=== PATIENT | female | born 1990 | race Caucasian/White ===

== ENCOUNTER 2016-10-29 00:31 | Emergency (ER) | payer OTHER ==
[2016-10-29 00:36] VITALS: TEMP 98.7
--- NOTE | 2016-10-29 00:45 | ED ---
Upper Extremity HPI - General Source: patient, RN notes reviewed, old records reviewed Mode of arrival: ambulatory Limitations: no limitations <Sybil Zamudio - Last Filed: 10/29/16 18:43> <Jordi Lopez - Last Filed: 11/01/16 09:18> - General Chief Complaint: Extremity Injury, Upper Stated Complaint: finger injury Time Seen by Provider: 10/29/16 00:38 - History of Present Illness Initial Comments: This is a 26-year-old female presenting to emergency Department chief complaint of left fourth finger laceration. Patient reports that she slammed her finger in a door gagandeep at a bar. Patient states that the nail bed is totally avulsed. Patient reports diminished sensation over the distal tip. She reports that her fingers "hanging off". She states that she had a previous laceration over this finger last year and it healed well. Patient is left handed. She reports that her tetanus is up-to-date. (Sybil Zamudio) - Related Data Previous Rx's Medication Instructions Recorded Antipyrine/Benzocaine/Glycerin 4 drops OTIC Q2H PRN #5 ml 02/06/15 [Auralgan Otic] Neomycin Calderon/Colist/Hc/Thonzon 4 drops RIGHT EAR QID #5 ml 02/06/15 [Cortisporin-Tc Otic Susp] traMADol HCl [Ultram] 50 - 100 mg PO Q6H PRN #15 tab 02/06/15 Amoxic-Pot Clav 875-125Mg 1 each PO Q12HR #20 tablet 02/08/15 [Augmentin Xr 875-125] Cephalexin [Keflex] 500 mg PO Q6HR #40 cap 10/29/16 HYDROcodone/APAP 10-325MG [[place] 1 tab PO Q6H PRN #15 tab 10/29/16 10-325] Allergies Allergy/AdvReac Type Severity Reaction Status Date / Time No Known Allergies Allergy Verified 10/29/16 00:37 Review of Systems ROS Other: All systems not noted in ROS Statement are negative. <Sybil Zamudio - Last Filed: 10/29/16 18:43> ROS Other: All systems not noted in ROS Statement are negative. <Jordi Lopez - Last Filed: 11/01/16 09:18> ROS Statement: Those systems with pertinent positive or pertinent negative responses have been documented in the HPI. Past Medical History Past Medical History: No Reported History History of Any Multi-Drug Resistant Organisms: None Reported Past Surgical History: Appendectomy Past Psychological History: Anxiety Smoking Status: Never smoker Past Alcohol Use History: None Reported Past Drug Use History: None Reported <Sybil Zamudio - Last Filed: 10/29/16 18:43> General Exam Limitations: no limitations General appearance: alert, in no apparent distress Head exam: Present: atraumatic, normocephalic, normal inspection Eye exam: Present: normal appearance, PERRL, EOMI. Absent: scleral icterus, conjunctival injection, periorbital swelling ENT exam: Present: normal exam, mucous membranes moist Neck exam: Present: normal inspection. Absent: tenderness, meningismus, lymphadenopathy Respiratory exam: Present: normal lung sounds bilaterally. Absent: respiratory distress, wheezes, rales, rhonchi, stridor Cardiovascular Exam: Present: regular rate, normal rhythm, normal heart sounds. Absent: systolic murmur, diastolic murmur, rubs, gallop, clicks GI/Abdominal exam: Present: soft, normal bowel sounds. Absent: distended, tenderness, guarding, rebound, rigid Extremities exam: Present: normal inspection, full ROM, normal capillary refill. Absent: tenderness, pedal edema, joint swelling, calf tenderness Left Hand L/R Front: 1 - laceration (2cm laceration) Hand L/R Back: 1 - Laceration and avulsed nailbed. No overlying skin tissue to attach. Neuro motor exam: Present: wrist extension intact, thumb opposition intact, thumb IP flexion intact, thumb adduction intact Neurosensory exam: Present: radial nerve intact, ulnar nerve intact, median nerve intact Vascular: Present: normal capillary refill Back exam: Present: normal inspection Neurological exam: Present: alert, oriented X3, CN II-XII intact Psychiatric exam: Present: normal affect, normal mood Skin exam: Present: warm, dry, intact, normal color. Absent: rash <Sybil Zamudio - Last Filed: 10/29/16 18:43> <Jordi Lopez - Last Filed: 11/01/16 09:18> - General Exam Comments Initial Comments: Patient appears in distress, she is crying.. (Sybli Zamudio) Medical Decision Making - Radiology Data Radiology results: report reviewed <Linda Zamudioily - Last Filed: 10/29/16 18:43> <Jordi Lopez - Last Filed: 11/01/16 09:18> - Medical Decision Making his is a 26-year-old female presenting to emergency Department chief complaint of left fourth finger laceration. Patient reports that she slammed her finger in a door gagandeep at a bar. Patient states that the nail bed is totally avulsed. Patient reports diminished sensation over the distal tip. She reports that her fingers "hanging off". She states that she had a previous laceration over this finger last year and it healed well. Patient is left handed. She reports that her tetanus is up-to-date. Patient finger nail is avulsed off, bleeding controlled. Xray shows distal tuft fracture. PAtient lateral aspect of the finger was adhered with 5 sutures. PAtient case discussed with Dr. Lopez, he attempted to keep the nail bed open by placing foil in the exposed nail bed. Patient would not tolerate this. Patient was given 1g IM Kefzol, and tyelnol with codeine. Dr. Lopez called Dr. Simmons, and he will see the patient on Monday morning. The wound was then covered with gelfoam, and placed in a tube gauze. PAtient agrees to follow up and return paramteres dicussed. (Sybil Zamudio) I saw this patient in conjunction with the physician training program assistant. I performed independent history and physical exam. Agree with case management. I did speak with the physician training program assistant covering for Dr. Simmons and they will see the patient for further wound care. (Jordi Lopez) - Radiology Data Left fourth distal phalanx fracture. (Sybil Zamudio) Disposition Time of Disposition: 01:58 <Sybil Zamudio - Last Filed: 10/29/16 18:43> <Jordi Lopez - Last Filed: 11/01/16 09:18> Clinical Impression: Open fracture of distal phalanx of finger of left hand, Nail avulsion Disposition: HOME SELF-CARE Condition: Good Instructions: Finger Fracture (ED), Nail Avulsion (ED) Additional Instructions: Keep finger wrapped in the tube gauze. Follow-up on Monday with orthopedic physician. Return to the emergency department if any alarming signs or symptoms occur. Prescriptions: Cephalexin [Keflex] 500 mg PO Q6HR #40 cap HYDROcodone/APAP 10-325MG [[place] 10-325] 1 tab PO Q6H PRN #15 tab PRN Reason: Pain Referrals: Shorty Simmons DO [Doctor of Osteopathic Medicine] - 1-2 days Magaly Foster MD [Primary Care Provider] - 1-2 days Addendum entered and electronically signed by Sybil Zamudio PA-C 10/29/16 18 :48: Procedure note: Patient fourth finger was given a digital block with 1% lidocaine, wound was throughly irriaged with normal saline and betadine. Patient distal finger was adhered to the base with 5 5-0 nylon sutures. Patient nailbed is still exposed, attempted to apply foil to the area of nailbed, however patient wound not tolerate this. She does have less than 2 second capillary refill to distal tip, and sensation intact.
[2016-10-29] MEDS ORDERED: ceFAZolin 1,000 MG VIAL IM STA (00:58)
--- NOTE | 2016-10-29 01:23 | XR ---
EXAM: XR Left Finger(s), 2 or More Views CLINICAL HISTORY: Reason: Pain TECHNIQUE: Frontal, lateral and oblique views of finger(s) of the left hand. COMPARISON: No relevant prior studies available. FINDINGS: Bones/joints: Comminuted fracture of the tuft of the left fourth distal phalanx. No dislocation. Soft tissues: Laceration to the distal left ring finger. No radiopaque foreign body. IMPRESSION: Left fourth distal phalanx fracture.
[2016-10-29] MEDS ORDERED: CEPHALEXIN 500MG STARTER PACK 4 CAP BTL PO STA (01:59)
[2016-10-29] MEDS ORDERED: ACET/COD 300 MG/30 MG STARTER PACK 6 TAB BTL PO STA (01:59)
[2016-10-29 03:20] VITALS: BP 115/55; PULSE 71; RESP 16
== END 2016-10-29 03:20 | disposition home or self-care (01) ==
LOC: EC 00:31
DX: S62.635B Displaced fracture of distal phalanx of left ring finger, initial encounter for open fracture (principal); W23.0XXA Caught, crushed, jammed, or pinched between moving objects, initial encounter; Y92.511 Restaurant or cafe as the place of occurrence of the external cause
CPT/HCPCS: 99283; 12001; 96372; 73140; J0690

== ENCOUNTER → 2016-11-17 | Outpatient (CLI) | payer OTHER ==
[2016-11-17 14:36] LABS: Basophils % (A) 1 %; CH 29.3; CHCM 33.7; Eosinophils # (A) 0.1 k/uL (0-0.7); Eosinophils % (A) 2 %; HCT 38.2 % (34.0-46.0); HDW 2.34; HGB 13.1 gm/dL (11.4-16.0); Luc # (Auto) 0.08; Luc % (Auto) 1; Lymphocytes # (A) 1.5 k/uL (1.0-4.8); Lymphocytes % (A) 20 %; MCH 29.9 pg (25.0-35.0); MCHC 34.3 g/dL (31.0-37.0); MCV 87.3 fL (80.0-100.0); Mean Platelet Volume 7.8; Monocytes # (A) 0.4 k/uL (0-1.0); Monocytes % (A) 5 %; Neutrophils # (A) 5.3 k/uL (1.3-7.7); Neutrophils % (A) 72 %; RBC 4.38 m/uL (3.80-5.40); RDW 12.8 % (11.5-15.5); WBC 7.4 k/uL (3.8-10.6); WBC (Perox) 7.34
== END | disposition home or self-care (01) ==
LOC: LABPAT 14:19
PROVIDERS: ATTEND Orthopaedic Surgery
DX: Z01.812 Encounter for preprocedural laboratory examination (principal)
CPT/HCPCS: 81025; 85025

== ENCOUNTER → 2016-11-23 | Day surgery (SDC) | payer OTHER ==
[2016-11-18 14:32] VITALS: BMI 40.6
--- NOTE | 2016-11-22 21:01 | HP ---
DATE OF SURGERY: 11/23/2016 Elisa Long is a 26-year-old patient seen with a displaced left ring finger distal phalanx fracture with a history of nail bed laceration. I recommended surgical intervention, closed reduction and percutaneous pinning of the distal phalanx fracture with probable revision of the nail bed laceration. I discussed the procedure, risks, complications, recovery. Patient was agreeable. Consent was obtained. PAST MEDICAL HISTORY: Non-contributory. PAST SURGICAL HISTORY: Appendectomy. DAILY MEDICATIONS: None. ALLERGIES: NONE REPORTED. SOCIAL HISTORY: Patient denies current tobacco use. PHYSICAL EVALUATION OF THE LEFT RING FINGER: There is evidence of previous healed laceration of the distal digit as well as the nail bed laceration, which is difficult to evaluate with the scab. There is tenderness along the distal phalanx area. She is able to flex the DIP and PIP joints with some extension, although limited. There is some mild deformity of the distal phalanx. There is good perfusion, sensation distally. Radiographs of the left ring finger reveal the displaced comminuted distal phalanx fracture. IMPRESSION: 1. Displaced left ring finger, distal phalanx fracture. 2. Left ring finger distal phalanx nail bed laceration. PLAN: Closed reduction and percutaneous pinning of the left ring finger, distal phalanx fracture, with revision nail bed laceration. MERNA
[~2016-11-23] MED LIST: BUPIVACAIN-EPI 0.25%-1:200,000 30 ML VIAL SQ ONE; DEXAMETHASONE SOD PHOSPHATE 10 MG/ML 1 ML VIAL IV ONE; HYDROcodone/APAP 10-325MG 1 EACH TAB PO ONE; HYDROmorphone (PF) 1 MG/ML ONE; HYDROmorphone 1 MG/ML 1 ML SYRINGE IVP PRN; KETOROLAC 30 MG/ML 1 ML VIAL IVP ONE; LACTATED RINGERS 1,000 ML IV SCH; LIDOCAINE 1% 20 ML VIAL (10MG/ML) FOR IV START INTRADERMA ONE; LIDOCAINE 1% INJ 10MG/ML (20 ML MDV) ONE; MIDAZOLAM 2 MG/2 ML VIAL IV PRN; MIDAZOLAM 2 MG/2 ML VIAL ONE; ONDANSETRON 4 MG/2 ML VIAL IVP ONE; PROPOFOL 10 MG/ML 20 ML VIAL IV ONE; SCOPOLAMINE 1.5MG/72HR PATCH TRANSDERM ONE; ceFAZolin 3 GM in SODIUM CHLORIDE 0.9% 100 ML IVPB ONE; fentaNYL (PF) 50 MCG/ML 2 ML AMP ONE
--- NOTE | 2016-11-23 13:13 | P.OP ---
Date of Procedure: 11/23/16 Preoperative Diagnosis: Left ring finger displaced comminuted distal phalanx fracture with nailbed laceration Postoperative Diagnosis: 1. Comminuted displaced distal phalanx fracture left ring finger 2. Nailbed laceration left ring finger Procedure(s) Performed: 1. Closed reduction with percutaneous pinning distal phalanx fracture left ring finger 2. Repair nailbed laceration left ring finger Implants: 0.45 K wire Anesthesia: WILIA, local Surgeon: Shorty Simmons Estimated Blood Loss (ml): 2 Pathology: none sent Condition: stable Disposition: PACU Indications for Procedure: 26-year-old patient seen with a comminuted displaced left ring finger distal phalanx fracture along with a nailbed laceration. I recommended surgical intervention to include pinning of the distal phalanx fracture and repair nailbed laceration. Patient was agreeable and consent was obtained. Operative Findings: See description of procedure Description of Procedure: The patient was taken to the operative suite. The patient received preoperative IV antibiotics. The left upper extremity was prepped and draped in the normal sterile orthopedic fashion. I utilized a [place] drain to create a tourniquet effect for the left ring finger. I now exposed the nailbed laceration which was obviously . I opened up the area and noted the displaced distal phalanx fracture. We debrided some scar tissue. The wound was irrigated. With fluoroscopic imaging I introduced a 0.45 K wire crossing the fracture site adequately aligning this comminuted distal phalanx fracture. We again irrigated the wound with normal saline. I now repaired the nailbed laceration utilizing 3-0 Vicryl with reasonable repair noted. I now released the Annita drain with immediate capillary refill noted of the entire digit. A digital block was performed with quarter percent plain Marcaine. Sterile dressings were applied. The patient was awakened and taken recovery stable condition.
[2016-11-23 13:24] VITALS: TEMP 97.6
[2016-11-23 13:49] VITALS: RESP 18
--- NOTE | 2016-11-23 14:14 | FL ---
EXAMINATION TYPE: FL guidance operating room, XR finger 2 views LT DATE OF EXAM: 11/23/2016 HISTORY: 26-year-old female pinning of the left fourth finger. FINDINGS: Intraoperative fluoroscopic images show percutaneous pinning across the transverse tuft fracture of t he fourth distal phalanx. FLUOROSCOPY Fluoroscopy time of 13 seconds was used during left fourth finger pinning. 2 image/s document/s the procedure. IMPRESSION: Percutaneous pinning across the tuftal fracture of the left fourth digit.
[2016-11-23 14:57] VITALS: BP 116/54; PULSE 82
== END | disposition home or self-care (01) ==
LOC: OR 10:03
PROVIDERS: ATTEND Orthopaedic Surgery
DX: S62.635A Displaced fracture of distal phalanx of left ring finger, initial encounter for closed fracture (principal); S61.315A Laceration without foreign body of left ring finger with damage to nail, initial encounter; X58.XXXA Exposure to other specified factors, initial encounter; Z79.891 Long term (current) use of opiate analgesic; Z79.899 Other long term (current) drug therapy
CPT/HCPCS: 81025; 73140; 26756; 17999; J2250; J1100; J0690; J2405; J2001; J3010; J1885; J1170; J2704

== ENCOUNTER 2017-10-25 22:36 | Emergency (ER) | payer SELFPAY ==
[2017-10-25 22:54] VITALS: RESP 18
[2017-10-25] MEDS ORDERED: predniSONE 50 MG TAB PO STA (23:55)
--- NOTE | 2017-10-25 23:55 | ED ---
Skin/Abscess/FB HPI - General Chief complaint: Skin/Abscess/Foreign Body Stated complaint: Rash Time Seen by Provider: 10/25/17 22:59 Source: patient Mode of arrival: ambulatory Limitations: no limitations - History of Present Illness Initial comments: 27-year-old female patient presents the emergency department today for evaluation of rash to her face and around her ears. Patient states that this rash started last evening. Patient states this started around the ears and has now spread onto her face. Patient states it is very mildly itchy and is burning. She denies any exposure to new substances over the last couple of days but states that she did change her shampoo approximately a week ago. She states that it is just a change of brand but the same type of shampoo. She does have a history of eczema but never to her face. She denies any drainage from the lesions. She denies any fever, chills, blurred vision, double vision, ear pain, or sore throat. She denies any intraoral lesions. Denies any history of similar symptoms. Patient denies any recent shortness breath, throat swelling, tongue swelling, chest pain, abdominal pain, nausea, vomiting, diarrhea, constipation, back pain, numbness, tingling, dizziness, weakness, hematuria, dysuria, urinary urgency, urinary frequency, headache, visual changes , or any other complaints. - Related Data Home Medications Medication Instructions Recorded Confirmed diphenhydrAMINE HCL [Benadryl] 50 mg PO BID PRN 10/25/17 10/25/17 Previous Rx's Medication Instructions Recorded predniSONE 50 mg PO DAILY #5 tablet 10/25/17 Allergies Allergy/AdvReac Type Severity Reaction Status Date / Time No Known Allergies Allergy Verified 10/25/17 22:58 Review of Systems ROS Statement: Those systems with pertinent positive or pertinent negative responses have been documented in the HPI. ROS Other: All systems not noted in ROS Statement are negative. Past Medical History Past Medical History: No Reported History Additional Past Medical History / Comment(s): OCCASIONAL SCIATICA PAIN, HX OF FX ANKLE & TOE, ECZEMA, BEING TESTED FOR HYPERTHYROID, YRS AGO SHE WAS TOLD SHE WAS PRE-DIABETIC., PT STATES SHE INJURED LEFT RING FINGER IN THE OANH OF A DOOR , FINGER IS WRAPPED WITH DRESSING. History of Any Multi-Drug Resistant Organisms: None Reported Past Surgical History: Appendectomy, Orthopedic Surgery Additional Past Surgical History / Comment(s): DENTAL PROCEDURES, left hand sx. Past Anesthesia/Blood Transfusion Reactions: No Reported Reaction Past Psychological History: ADD/ADHD, Anxiety, Depression Smoking Status: Never smoker Past Alcohol Use History: Occasional Past Drug Use History: None Reported - Past Family History Mother Family Medical History: Cancer Additional Family Medical History / Comment(s): BREAST CANCER General Exam Limitations: no limitations General appearance: alert, in no apparent distress, other (This is a well- developed, well-nourished adult female patient in no acute distress. Vital signs upon presentation are temperature 98.2F, pulse 53, respirations 18, blood pressure 142/87, pulse ox 99% on room air.) Eye exam: Present: normal appearance, PERRL, EOMI. Absent: scleral icterus, conjunctival injection, periorbital swelling ENT exam: Present: normal exam, normal oropharynx, mucous membranes moist, TM's normal bilaterally Respiratory exam: Present: normal lung sounds bilaterally. Absent: respiratory distress, wheezes, rales, rhonchi, stridor Cardiovascular Exam: Present: regular rate, normal rhythm, normal heart sounds. Absent: systolic murmur, diastolic murmur, rubs, gallop, clicks Neurological exam: Present: alert, oriented X3, CN II-XII intact Psychiatric exam: Present: normal affect, normal mood Skin exam: Present: warm, dry, intact, normal color, rash Expanded Type of lesion: Present: rash Distribution of rash: face, other (Ears) Description of rash: Present: erythematous, papular, other (Patient has erythematous papules over her face, thicker distribution around ears in the pre- and postauricular areas as well as over the external ear. There is no drainage , lesions or non-petechial, nonvesicular, non-mucosal. There is no evidence of secondary infection. Lesions appear consistent with contact dermatitis.) Course Vital Signs 10/25/17 22:51 Temperature 98.2 F Pulse Rate 53 L Respiratory 18 Rate Blood Pressure 142/87 O2 Sat by Pulse 99 Oximetry Medical Decision Making - Medical Decision Making 27-year-old female patient presented to the emergency department today for evaluation of rash to her face and around her years. Physical examination did reveal a rash over the face and the ears that appears consistent with contact dermatitis. Patient will be started on steroids. She is instructed to complete medication prescription and full. She is instructed to use cool compresses should her burning and itching symptoms get worse. She is advised to avoid putting any steroid creams on her face. She is instructed to follow- up with her primary care physician for recheck in 1-2 days. She is instructed to follow-up with dermatology of her symptoms don't improve over the next 3-5 days. Return parameters discussed in detail. She verbalizes understanding and agrees with this plan. Disposition Clinical Impression: Contact dermatitis Disposition: HOME SELF-CARE Condition: Good Instructions: Contact Dermatitis (ED) Additional Instructions: Take medications as directed. Follow-up with your primary care physician for recheck in 1-2 days. If symptoms do not improve follow up with dermatology. Return here immediately for any new, worsening, or concerning symptoms. Prescriptions: predniSONE 50 mg PO DAILY #5 tablet Is patient prescribed a controlled substance at d/c from ED?: No Referrals: Magaly Foster MD [Primary Care Provider] - 1-2 days Krissy Garzon MD [STAFF PHYSICIAN] - 1-2 days Time of Disposition: 23:55
[2017-10-26 00:38] VITALS: BP 147/98; PULSE 73; TEMP 98.7
== END 2017-10-26 00:39 | disposition home or self-care (01) ==
LOC: EC 22:36
DX: L25.9 Unspecified contact dermatitis, unspecified cause (principal)
CPT/HCPCS: 99282; J7512

== ENCOUNTER 2018-12-30 20:02 | Emergency (ER) | payer OTHER ==
[2018-12-30 20:13] VITALS: BP 125/86; PULSE 74; RESP 16; TEMP 98.1
[2018-12-30] MEDS ORDERED: LIDOCAINE 5% PATCH TOPICAL STA (20:41)
[2018-12-30] MEDS ORDERED: ACET/COD 300 MG/30 MG STARTER PACK 6 TAB BTL PO STA (20:41)
[2018-12-30] MEDS ORDERED: CYCLOBENZAPRINE 10MG STARTER 3 TAB BTL PO STA (20:42)
--- NOTE | 2018-12-30 20:59 | ED ---
Back Pain HPI - General Chief Complaint: Back Pain/Injury Stated Complaint: sciatica Time Seen by Provider: 12/30/18 20:17 Source: patient Limitations: no limitations - History of Present Illness Initial Comments: Patient is a 28-year-old female presents emergency Department with chief complaint of sciatica pain. Patient reports history of chronic sciatica symptoms that come ago for the past few years. Patient reports going physical therapy regarding her symptoms. Patient reports the pain is a 5 and throbbing. Patient was up and exacerbated with extension and flexion. Patient reports the pain is alleviated at rest. Patient reports taking approximately minimal improvement. Patient denies any numbness or tingling. Patient reports the pain starts in the right lumbosacral region and radiates along the posterior aspect of her right upper leg to the popliteal region. Patient denies saddle paresthesias, urinary or bowel incontinence. No red flags. - Related Data Home Medications Medication Instructions Recorded Confirmed diphenhydrAMINE HCL [Benadryl] 50 mg PO BID PRN 10/25/17 10/25/17 Previous Rx's Medication Instructions Recorded predniSONE 50 mg PO DAILY #5 tablet 10/25/17 Allergies Allergy/AdvReac Type Severity Reaction Status Date / Time No Known Allergies Allergy Verified 12/30/18 20:12 Review of Systems ROS Statement: Those systems with pertinent positive or pertinent negative responses have been documented in the HPI. ROS Other: All systems not noted in ROS Statement are negative. Past Medical History Past Medical History: No Reported History Additional Past Medical History / Comment(s): OCCASIONAL SCIATICA PAIN, HX OF FX ANKLE & TOE, ECZEMA, BEING TESTED FOR HYPERTHYROID, YRS AGO SHE WAS TOLD SHE WAS PRE-DIABETIC., PT STATES SHE INJURED LEFT RING FINGER IN THE OANH OF A DOOR, FINGER IS WRAPPED WITH DRESSING. History of Any Multi-Drug Resistant Organisms: None Reported Past Surgical History: Appendectomy, Orthopedic Surgery Additional Past Surgical History / Comment(s): DENTAL PROCEDURES, left hand sx. Past Anesthesia/Blood Transfusion Reactions: No Reported Reaction Past Psychological History: ADD/ADHD, Anxiety, Depression Smoking Status: Never smoker Past Alcohol Use History: Occasional Past Drug Use History: None Reported - Past Family History Mother Family Medical History: Cancer Additional Family Medical History / Comment(s): BREAST CANCER General Exam Limitations: no limitations General appearance: alert, in no apparent distress, obese Head exam: Present: atraumatic, normocephalic, normal inspection Eye exam: Present: normal appearance, PERRL, EOMI Pupils: Present: normal accommodation ENT exam: Present: normal exam, mucous membranes moist, normal external ear exam Neck exam: Present: normal inspection, full ROM Respiratory exam: Present: normal lung sounds bilaterally Cardiovascular Exam: Present: regular rate, normal rhythm, normal heart sounds Extremities exam: Present: normal inspection, full ROM Back exam: Present: normal inspection, full ROM, tenderness (Tenderness along the right lobe sacral region.), paraspinal tenderness (Right lumbosacral). Absent: muscle spasm, vertebral tenderness Neurological exam: Present: alert, oriented X3 Psychiatric exam: Present: normal affect, normal mood Skin exam: Present: warm, intact, normal color Course Vital Signs 12/30/18 20:09 Temperature 98.1 F Pulse Rate 74 Respiratory 16 Rate Blood Pressure 125/86 O2 Sat by Pulse 97 Oximetry Medical Decision Making - Medical Decision Making Patient is 28-year-old female presenting to emergency Department with a chief complaint of sciatic on the right leg. Patient does not have insurance and is worried about obtaining any prescribed medications. Based on history or physical examination the patient does appear to have sciatic pain type symptoms. No cauda equina. No red flags. Patient advised to follow-up with orthopedics in physical therapy for further management. Patient given a Lidoderm patch. Patient will be discharged with a Flexeril and Tylenol 3 starter pack. Strict return parameters were thoroughly discussed with patient was understanding and agreeable. Case discussed with physician. Disposition Clinical Impression: Sciatica Disposition: HOME SELF-CARE Condition: Stable Instructions (If sedation given, give patient instructions): Sciatica (ED) Additional Instructions: Please follow up with orthopedics. Please return to emergency department if symptoms worsen. Please see prescribe medication as directed. Is patient prescribed a controlled substance at d/c from ED?: No Referrals: Magaly Foster MD [Primary Care Provider] - 1-2 days Mk Araujo MD [STAFF PHYSICIAN] - 1-2 days Time of Disposition: 21:22
== END 2018-12-30 21:38 | disposition home or self-care (01) ==
LOC: EC 20:02
DX: M54.41 Lumbago with sciatica, right side (principal)
CPT/HCPCS: 99283

== ENCOUNTER 2020-08-23 00:09 | Emergency (ER) | payer OTHER ==
[2020-08-23 00:48] VITALS: BP 139/93; PULSE 87; RESP 20; TEMP 98.9
--- NOTE | 2020-08-23 01:13 | XR ---
EXAM: XR Left Ankle Complete, 3 or More Views CLINICAL HISTORY: Left ankle pain and swelling. TECHNIQUE: Frontal, lateral and oblique views of the left ankle. COMPARISON: No previous studies. FINDINGS: Bones/joints: Osteopenia. Ankle mortise is preserved. No acute fracture, dislocation, or destructive process. Calcaneus is within normal limits. No fracture of the base of the left fifth metatarsal. Soft tissues: There is soft tissue swelling about the lateral malleolus. IMPRESSION: 1. Soft tissue swelling about the lateral malleolus. 2. Ankle mortise is preserved. 3. No acute fracture or dislocation.
[2020-08-23] MEDS ORDERED: IBUPROFEN 400 MG TAB PO STA (02:10)
--- NOTE | 2020-08-23 02:10 | ED ---
Lower Extremity Injury HPI - General Chief Complaint: Extremity Injury, Lower Stated Complaint: Left ankle injury Time Seen by Provider: 08/23/20 02:08 Source: patient Mode of arrival: ambulatory Limitations: no limitations - History of Present Illness MD Complaint: ankle injury -: hour(s) Injury: Ankle: Left Type of Injury: inversion Place: street/outdoors Severity: moderate Worsens With: weight bearing Context: walking Associated Symptoms: swelling, able to partially bear weight - Related Data Home Medications Medication Instructions Recorded Confirmed diphenhydrAMINE HCL [Benadryl] 50 mg PO BID PRN 10/25/17 10/25/17 Previous Rx's Medication Instructions Recorded predniSONE 50 mg PO DAILY #5 tablet 10/25/17 Ibuprofen 800 mg PO TID #20 tablet 08/23/20 Allergies Allergy/AdvReac Type Severity Reaction Status Date / Time No Known Allergies Allergy Verified 08/23/20 00:48 Review of Systems ROS Statement: Those systems with pertinent positive or pertinent negative responses have been documented in the HPI. ROS Other: All systems not noted in ROS Statement are negative. Constitutional: Denies: fever, chills Respiratory: Denies: cough, dyspnea Cardiovascular: Denies: chest pain Musculoskeletal: Reports: as per HPI, joint swelling, arthralgia Skin: Denies: lesions Neurological: Denies: weakness, numbness Past Medical History Past Medical History: No Reported History Additional Past Medical History / Comment(s): OCCASIONAL SCIATICA PAIN, HX OF FX ANKLE & TOE, ECZEMA, BEING TESTED FOR HYPERTHYROID, YRS AGO SHE WAS TOLD SHE WAS PRE-DIABETIC., PT STATES SHE INJURED LEFT RING FINGER IN THE OANH OF A DOOR, FINGER IS WRAPPED WITH DRESSING. History of Any Multi-Drug Resistant Organisms: None Reported Past Surgical History: Appendectomy, Orthopedic Surgery Additional Past Surgical History / Comment(s): DENTAL PROCEDURES, left hand sx. Past Anesthesia/Blood Transfusion Reactions: No Reported Reaction Past Psychological History: ADD/ADHD, Anxiety, Depression Smoking Status: Never smoker Past Alcohol Use History: Occasional Past Drug Use History: None Reported - Past Family History Mother Family Medical History: Cancer Additional Family Medical History / Comment(s): BREAST CANCER General Exam Limitations: no limitations General appearance: alert Extremities exam: Present: normal capillary refill. Absent: pedal edema, calf tenderness Left Knee exam: Present: normal inspection, full ROM. Absent: tenderness, swelling Lower Leg exam: Present: normal inspection, full ROM. Absent: tenderness, swelling Ankle exam: Present: full ROM, tenderness (Lateral malleolus), swelling. Absent: abrasion, laceration, ecchymosis, deformity, crepitus, dislocation, erythema, anterior draw sign Foot/Toe exam: Present: normal inspection, full ROM. Absent: tenderness, swelling, abrasion, laceration, ecchymosis, deformity, crepitus, dislocation, erythema, amputation, calcaneal tenderness, tenderness at base of 5th metatarsal Neurovascular tendon exam: Present: no vascular compromise. Absent: pulse deficit, abnormal cap refill, motor deficit, sensory deficit, tendon deficit Neurological exam: Absent: motor sensory deficit (Throughout left lower extremity) Skin exam: Present: warm, dry, intact, normal color. Absent: rash Course Vital Signs 08/23/20 00:45 Temperature 98.9 F Pulse Rate 87 Respiratory 20 Rate Blood Pressure 139/93 O2 Sat by Pulse 99 Oximetry Disposition Clinical Impression: Left ankle sprain Disposition: HOME SELF-CARE Condition: Good Instructions (If sedation given, give patient instructions): Ankle Sprain (ED) Prescriptions: Ibuprofen 800 mg PO TID #20 tablet Is patient prescribed a controlled substance at d/c from ED?: No Referrals: Magaly Foster MD [Primary Care Provider] - 1-2 days
== END 2020-08-23 02:45 | disposition home or self-care (01) ==
LOC: EC 00:09
DX: S93.402A Sprain of unspecified ligament of left ankle, initial encounter (principal); Z90.49 Acquired absence of other specified parts of digestive tract; X58.XXXA Exposure to other specified factors, initial encounter; F32.9 Major depressive disorder, single episode, unspecified
CPT/HCPCS: 73610; 99283; L4350